=== PATIENT | female | born 1950 | race Caucasian/White ===

== ENCOUNTER 2016-04-05 05:39 | Inpatient (IN) | payer BC, MEDICARE ==
[2016-04-08] MEDS ORDERED: ZESTRIL DPS20 MG PO (12:51)
[2016-04-08] MEDS ORDERED: LEVOTHYROXINE112 MCG PO (12:51)
[2016-04-08] MEDS ORDERED: ZOCOR DPS40 MG PO (12:51)
[2016-04-08] MEDS ORDERED: GLUCOPHAGE-DPS500 MG PO (12:51)
[2016-04-08] MEDS ORDERED: TYLENOL EXTRA500 M1 PO (12:52)
[2016-04-08] MEDS ORDERED: GARCINIA CAMBO1 EACH PO (12:52)
[2016-04-08] MEDS ORDERED: TINACTIN TP (12:53)
[2016-04-08] MEDS ORDERED: [UNRECOGNIZED DRUG - OTHER] TP (12:53)
[2016-04-08] MEDS ORDERED: [UNRECOGNIZED DRUG - OTHER] TP (12:53)
[2016-04-08] MEDS ORDERED: ULTRAM DPS50 MG PO (12:54)
[2016-04-08] MEDS ORDERED: ASA325 MG PO (12:55)
[2016-04-08] MEDS ORDERED: OXY IR DPS5 MG PO (12:55)
[2016-04-08] MEDS ORDERED: CELEBREX200 MG PO (12:56)
[2016-04-08] MEDS ORDERED: [UNRECOGNIZED DRUG - OTHER] TP (12:57)
== END 2016-04-07 16:20 | disposition home or self-care (01) | DRG 470 ==
DX: M17.0 Bilateral primary osteoarthritis of knee (principal); D62 Acute posthemorrhagic anemia; I10 Essential (primary) hypertension; E03.9 Hypothyroidism, unspecified; E11.9 Type 2 diabetes mellitus without complications; K21.9 Gastro-esophageal reflux disease without esophagitis; E66.9 Obesity, unspecified; E78.5 Hyperlipidemia, unspecified; Z82.49 Family history of ischemic heart disease and other diseases of the circulatory system; Z68.31 Body mass index [BMI] 31.0-31.9, adult